=== PATIENT | female | born 2000 | race Caucasian/White ===

== ENCOUNTER 2024-02-24 07:08 | Outpatient (CLI) | payer BC, SELFPAY ==
--- NOTE | 2024-02-24 07:15 | CRLHL7_ITS ---
For Patients: As a result of the Century Cures Act, medical imaging exams and procedure reports are released immediately into your electronic medical record. You may view this report before your referring provider. If you have questions, please contact your health care provider. INDICATION: Evaluate anatomy. COMPARISON: none TECHNIQUE: Real time yao scale imaging of the fetus was performed as well as color Doppler analysis of the umbilical vessels. FINDINGS: Sonographic imaging demonstrates a single living intrauterine gestation. Fetus demonstrates a regular cardiac rate of 138 beats per minute. Fetus has a vertex position. The placenta lies posteriorly without evidence of placenta previa. As below placenta located 4.6 cm from the internal cervical os. Amniotic fluid volume appears normal. Single deepest vertical pocket: 6.7 cm. The cervix is closed and measures 3.8 cm in length. The composite ultrasound gestational age is calculated at 20 weeks 6 days with an estimated sonographic due date of 07/07/2024. The estimated weight is 399 grams which lies at the 66th %. The following biometric measurements were obtained: Biparietal diameter: 4.7 cm/20 weeks 1 day 26th% Head circumference: 17.7 cm/20 weeks 2 days 20th% Abdominal circumference: 16.7 cm/21 weeks 5 days 75th% Femur length: 3.4 cm/20 weeks 5 days 41st% The HC/AC ratio measures: 1.07 range (1.06-1.25) On anatomic survey, there is a normal appearance of the cerebral ventricles, cavum septi pellucidi, cisterna magna and cerebellum. The nose, lips, and facial profile appear normal. The cervical, thoracic and lumbar spine are well visualized and appear normal. There is a normal four-chamber heart view and the left and right ventricular outflow tracts appear normal. The diaphragm and stomach appear normal. The kidneys and bladder also appear normal. There is a normal three-vessel cord and cord insertion site. The four extremities appear normal. IMPRESSION: Normal OB ultrasound exam with concordance of clinical and sonographic dating. No intrinsic abnormalities noted on anatomic survey. Dictated by Jethro Callejas MD @ 02/24/2024 2:21:36 PM (Electronically Signed)
== END 2024-02-24 07:09 | disposition home or self-care (01) ==
LOC: US 07:08
PROVIDERS: PCP Internal Medicine; Visit Provider Advanced Practice Midwife
DX: Z34.92 Encounter for supervision of normal pregnancy, unspecified, second trimester (principal); Z3A.20 20 weeks gestation of pregnancy
CPT/HCPCS: 76805

== ENCOUNTER 2024-04-20 08:35 | Outpatient (CLI) | payer BC, MEDICAID, SELFPAY | END 2024-04-20 08:36 | disposition home or self-care (01) | LOC: NFLDREF 04-23 05:52 | PROVIDERS: PCP Internal Medicine; Referring Provider Internal Medicine; Visit Provider Advanced Practice Midwife | DX: Z34.93 Encounter for supervision of normal pregnancy, unspecified, third trimester (principal); Z3A.28 28 weeks gestation of pregnancy | CPT/HCPCS: 86592 ==

== ENCOUNTER 2024-06-01 14:22 | Outpatient (CLI) | payer BC, MEDICAID, SELFPAY | END 2024-06-01 14:23 | disposition home or self-care (01) | LOC: NFLDREF 06-07 07:10 | PROVIDERS: PCP Internal Medicine; Referring Provider Internal Medicine; Visit Provider Midwife | DX: Z34.83 Encounter for supervision of other normal pregnancy, third trimester (principal) | CPT/HCPCS: 82728 ==

== ENCOUNTER 2024-06-07 11:14 | Outpatient (RCR) | payer BC, SELFPAY ==
--- NOTE | 2024-06-06 11:18 | URNOTE ---
?Request received for authorization for [employer] ([employer] ([id number]). Prior authorization is not required per [facility] Ref#[id number].
[2024-06-07 11:26] VITALS: BP 120/72; PULSE 85; RESP 14; TEMP 36.1; O2SAT 99
[2024-06-07] MEDS: IRON DEXTRAN COMPLEX 25 MG in 0.9 % SODIUM CHLORIDE 100 ml 100 ML 402 MG IVPB (12:04)
[2024-06-07] MEDS: IRON DEXTRAN COMPLEX 975 MG in 0.9 % SODIUM CHLORIDE 250 ml 250 ML 270 MG IVPB (13:33)
[2024-06-07 14:45] VITALS: BP 122/69; PULSE 102; RESP 18; O2SAT 99
== END 2024-12-04 23:59 | disposition home or self-care (01) ==
LOC: CCIC 11:14
PROVIDERS: PCP Internal Medicine; Referring Provider Internal Medicine; Visit Provider Clinical Nurse Specialist
DX: O99.013 Anemia complicating pregnancy, third trimester (principal); D50.9 Iron deficiency anemia, unspecified
CPT/HCPCS: 96365; 96376; J1750; J7050

== ENCOUNTER 2024-06-08 15:27 | Outpatient (CLI) | payer BC, SELFPAY ==
[2024-06-09 14:29] LABS: Strep B DNA Probe Negative (Negative)
[2024-06-09 14:32] LABS: Strep B Susceptibility Needed? No
== END 2024-06-08 15:28 | disposition home or self-care (01) ==
LOC: NFLDREF 15:27
PROVIDERS: PCP Internal Medicine; Visit Provider Advanced Practice Midwife
DX: Z34.93 Encounter for supervision of normal pregnancy, unspecified, third trimester (principal); Z3A.35 35 weeks gestation of pregnancy
CPT/HCPCS: 87081; 87653

== ENCOUNTER 2024-07-13 17:37 | Outpatient (CLI) | payer BC, SELFPAY ==
--- NOTE | 2024-07-13 17:30 | CRLHL7_ITS ---
For Patients: As a result of the Century Cures Act, medical imaging exams and procedure reports are released immediately into your electronic medical record. You may view this report before your referring provider. If you have questions, please contact your health care provider. INDICATION: post term COMPARISON: 02/24/2024 TECHNIQUE: Real time yao scale imaging of the fetus was performed. Without non-stress testing. FINDINGS: Sonographic imaging demonstrates a single living intrauterine gestation. Fetus demonstrates a regular cardiac rate of 154 beats per minute. Fetus has a vertex position. The amniotic fluid volume appears normal and there is a single deepest pocket measurement of 7.9 cm. The fetus was active and demonstrated normal breathing movements. There was normal flexion and extension of the trunk and extremities. IMPRESSION: Normal biophysical profile score of 8 out of 8. Dictated by Jethro Callejas MD @ 07/14/2024 10:20:20 AM (Electronically Signed)
== END 2024-07-13 17:38 | disposition home or self-care (01) ==
LOC: US 17:38
PROVIDERS: PCP Internal Medicine; Visit Provider Advanced Practice Midwife
DX: O48.0 Post-term pregnancy (principal)
CPT/HCPCS: 76819

== ENCOUNTER 2024-07-14 21:31 | Inpatient (IN) | payer BC, SELFPAY ==
--- NOTE | 2024-07-14 21:40 | W.PM.LDBA ---
Subjective History of Present Illness Time Seen by Provider: 21:40 Date Seen: 07/14/24 Narrative: Eva is being admitted to Labor and Delivery for active labor at term. She is a 23 year old at 40.6 weeks gestation. Her full history and physical was dictated by Vishal Calvo CNM on 06/15/24. Please see this for details. She has been neva mildly most of the day but they became more regular and more uncomfortable around 1800 with reporting them every 3-4 minutes. On presentation she was 6cm/80%/0 per RN exam. She has had some bloody show but denies leaking fluid. She is appreciating good movement. Specific Issues/Plans Jimi- It is another boy! Tx at 18wks from [place] H&P 06/15/24 by Vishal Calvo CNM # Hx PPH from lacerations requiring 2 units PRBC. Has trauma from her previous delivery. # Anemia, Hgb 10.4; 34wk: 10.1 Recommended iron supplement, taking gummy IV iron 06/07 # Prepregnancy BMI >35. OB Labs: ? Blood type: A+, antibody screen negative. ? Hgb: 12.2 ? Platelets: 352 ? Rubella: Immune ? Varicella: not tested RPR: non-reactive ? HBsAg: non-reactive ? Hep C: negative HIV: negative ? UC: negative GC/Chlamydia: negative/negative ? Pap (12/08/23): negative ? Genetic screening: negative, NIPT IMAGING: ? 1st trimester: Single, living intrauterine with crown-rump length of 2.38 cm corresponding to 9 weeks, 1 day gestational age. Yolk sac is visualized and appears normal. Gestational sac is fundal. Normal cardiac activity. TDAP: 05/04/2024 Flu: declined RSV: declined OB - Problem Based A/P Additional Plan (1) Pain during labor: Status: Acute (2) Hx of hemorrhage, currently : Problem details: bleeding from lacerations, needed 2 units PRBC Status: Acute Plan ASSESSMENT:? at 40.6 weeks gestation? GBS negative? complicated by: obesity (BMI >35 at NOB), anemia on iron Labor type: spontaneous Blood type:?A+ ?? PLAN:? 1. Expectant management at this time. Anticipate . 2. Desires water . Consent signed. Hep C negative.? 3. Candidate for analgesia of choice. Planning unmedicated .? 4. Intermittent monitoring after reactive tracing unless patient condition changes. 5. Encouraged IV placement given her history of PPH but declines. PPH was related to laceration and not uterine. Delivery/Labor/Induction Plan Plan: expectant management OB Result Labs Blood Type: A (+) positive Rubella: immune RPR/VDLR: nonreactive GBS Status: negative HBsAG: negative OB Exam Physical Exam Narrative: General: alert, oriented x3, no acute distress Mood: appropriate Lungs: CTA. Respirations - breathing unlabored Heart: Regular rate and rhythm Abdomen: soft, nontender, gravid uterus Legs: nontender, edema none Skin: warm, dry, no rashes Neurologic: Intact. Detailed Labor and Delivery Exam Patient Gravid: Yes Dilation (cm): 6 (per RN exam) Effacement (%): 80 Contraction Frequency: 2-4 min Tachysystole: No Contraction intensity: Strong/Firm Fetus (Single) Station: 0 Amniotic Membrane Status: intact Heart Rate Baseline: 120 Monitor Accelerations: Present Monitor Decelerations: None [facility] Variability: Moderate (6-25) (with periods of marked)
[2024-07-14 22:07] VITALS: BP 144/75; PULSE 99; TEMP 36.4
[2024-07-14 23:06] LABS: Basophils Absolute Auto 0.01 K/uL (0.00-0.30); Basophils Percent Auto 0.1 % (0.0-3.0); Eosinophils Absolute Auto 0.02 K/uL (0.00-0.50); Eosinophils Percent Auto 0.2 % (0.0-7.0); Hematocrit 40.9 % (33.0-51.0); Hemoglobin* 13.2 gm/dL (12.0-16.0); Immature Granulocytes Abs Auto 0.07 K/uL (0.00-0.30); Immature Granulocytes Pct Auto 0.8 %; Lymphocytes Percent Auto 14.7 % (20-44); Mean Corpuscular HGB Conc 32 gm/dL (32-36); Mean Corpuscular Hemoglobin 26 pg (26-34); Mean Corpuscular Volume 82 fL (80-100); Monocytes Percent Auto 8.6 % (0.0-11.0); Neutrophils Percent Auto 75.6 % (42.0-72.0); Platelet Count* 194 K/uL (140-440); RDW Coefficient of Variation % 23.3 % (11.5-15.5)
[2024-07-14 23:08] LABS: Slide Review Reflex No
[2024-07-14 23:30] VITALS: BP 133/66; PULSE 91; TEMP 37.1
[2024-07-14 23:44] VITALS: BMI 39.5
[2024-07-15] VITALS (13 sets, daily range): BP systolic 104–129; BP diastolic 56–77; PULSE 82–110; RESP 16–18; TEMP 36.7–36.8; O2SAT 97–100
[2024-07-15] MEDS: OXYTOCIN 10 UNIT/ML INJ IM (02:08)
[2024-07-15] MEDS: LIDOCAINE 1 % PF 30 ML INJECTION (02:15)
[2024-07-15] MEDS: lidocaine HCL 2 % JELLY (TOP) STERILE 6 ML TOPICAL (02:18)
--- NOTE | 2024-07-15 02:53 | W.PM.OBVAGDE ---
OB Procedure Vag Delivery Mother Details Mother Details: The patient is a 23 year-old, 2, Para 1, admitted on 07/14/24 at 41.0 Days gestation. : 2 Para: 2 Weeks Gestation: 41.0 Admission Date: 07/14/24 Additional Details Amniotic Membrane Status: AROM Amniotic Membrane Rupture Date: 07/15/24 Amniotic Membrane Rupture Time: 01:11 Amniotic Membrane Fluid Description: Clear Analgesia/Anesthesia Type: None Waterbirth: No (labored in tub but got out before delivery) [employer]: Yes ([facility] only) Intrapartal Events: None Delivery augmentation: rupture of membranes Labor Onset: 18:00 Complete: 01:50 Pushin:50 Heart: heart tones during second stage were not dopplered due to rapid second stage. Prior to second stage 130-140 with increases hear and no decreases were heard. Delivery Details Delivery Date: 07/15/24 Delivery Time: 01:55 Route of delivery: Gender: Male Infant Viability: Alive; Heart Rate Present Position at Delivery: OA Delivery Details: Patient was admitted for spontaneous labor and progressed with AROM augmentation. AROM noted at 0111 with clear fluid. Patient was complete at 0150 and actively pushing at 0150. She did have some spontaneous pushing with some contractions before complete. Encouraged her to breath through those urges as she could. She labored in the tub for a long time with intermittent pressure and slight urge to push. Encouraged her to get out to urinate and change positions. Assisted to the toilet where she began feeling the urge to push more often. She was found to have an anterior cervix remaining and was encouraged to breath through the urge if possible. She was offered to get back in the tub vs another position and she decided to get in hands and knees on the bed. She then felt a very strong urge to push and was found to be complete. of a viable male at 0155 in in hands and knees. Vertex delivered OA. No nuchal cord or shoulder but the cord was loosely draped over the shoulders at delivery. Body delivered easily and without incident. passed between mothers legs on the bed. No respiratory effort was made so the cord was clamped and cut and he was brought to the warmer for CPAP. APGARS were 3 at one minute, 5 at five minutes, and 8 at 10 minutes respectively. Mouth was bulb suctioned as well as deep suctioned on the warmer with a return of a large amount of clear fluid. Intact placenta with a 3 vessel cord delivered spontaneously at 0204. Fundus firm. 1st identified and repaired in typical fashion to assist with appropriate approximation of the tissues for healing. QBL 600 cc. Mother and baby stable; mother plans to breastfeed. weight 9lb 0oz.? 1 Minute Interval Total Score: 3 5 Minute Interval Total Score: 5 10 Minute Interval Total Score: 8 Additional Details Shoulder Dystocia: No Placenta Delivery Time: 01:55 Placental Delivery Description: Spontaneous Delivery repair: Vicryl Procedure Done: Global Blood Loss: 600 Laceration: Perineal - 1st Degree Episiotomy Description: None Blood Loss Measurement Type: QBL Bakri Used: No Sponge/Need Count Correct: Yes Cord Vessel Description: 3 Vessels, Around Body and Delivered through Event Summary Status: Mother and infant were stable after delivery. Disposition: floor
[2024-07-15] MEDS: ACETAMINOPHEN 500 MG TABLET 1000 MG PO ×2 (02:59→12:22)
[2024-07-15] MEDS: DOCUSATE SODIUM 100 MG CAPSULE PO (09:26)
[2024-07-15] MEDS: IBUPROFEN 600 MG TABLET PO (18:19)
[2024-07-15] MEDS: LANOLIN CREAM 1 APPLIC TOPICAL (22:16)
[2024-07-16 02:05] VITALS: BP 113/77; PULSE 100; RESP 16; TEMP 36.8; O2SAT 98
[2024-07-16 07:08] LABS: Hemoglobin* 10.3 gm/dL (12.0-16.0)
--- NOTE | 2024-07-16 08:54 | PM.OBDSVD1 ---
DS: Providers Provider Date Seen: 07/16/24 Date of admission: 07/14/24 21:31 Primary care physician: Mandy Mejias Admitting Clinician: Maria Fernanda Calvo CNM Attending Physician on discharge: Rohini Singh CNM DS: Diagnosis Discharge Diagnosis (1) care and examination immediately after delivery: Status: Acute (2) Lactating mother: Status: Acute Exam Narrative: Exam Narrative: GENERAL APPEARANCE:? normal affect, alert, no distress MOOD:? appropriate CHEST:? clear to auscultation HEART:? regular rate and rhythm ABDOMEN:? soft, non-tender the uterine fundus is 1 below Umbilicus, Midline and is appropriate for the stage of recovery. PERINEUM:? mild edema of the perineum, there is a Perineal Laceration,?1st degree, that is healing well. EXTREMITIES:? normal and no edema Const: Vital Signs, click to edit/add: Vital Signs - 24 hr 07/15/24 12:16 07/15/24 16:12 07/15/24 21:40 Temperature 98.2 F 98.1 F Pulse Rate [Pulse Oximeter] 98 84 100 Respiratory Rate 16 18 18 Blood Pressure [Ri ght Arm] 106/70 104/66 115/77 Pulse Oximetry 97 98 97 Oxygen Delivery Me thod Room Air Room Air Room Air 07/16/24 02:05 Temperature 98.2 F Pulse Rate [Pulse Oximeter] 100 Respiratory Rate 16 Blood Pressure [Ri ght Arm] 113/77 Pulse Oximetry 98 Oxygen Delivery Me thod Room Air Documenting provider has reviewed patient's vital signs: yes OB - DS: Summary Hospital Course Hospital Course: Eva is a 23 y.o. G 2 P 2 who was admitted to L & D for spontaneous onset of labor. ?She had a NVD that was uncomplicated. The patient feels well. ?The pain is well controlled with current medications. ?She has no new complaints. ?She is breast feeding and reports things are going well. the patient has done well.? Vitals have been stable.? She has remained afebrile.? Has a good appetite, is tolerating a general diet. ?She is voiding without difficulty.? She is passing gas and has not had a bowel movement.? She is ambulating and denies any dizziness.? Has small amount of rubra lochia. She is planning condoms for prevention. Problems: anemia plan: Discharge home with baby. Follow up in 2 weeks and 6 weeks. , may see if needed Hgb 10.3. Iron supplement ordered orally every other day Peripartum Data delivery method: Vaginal Laceration description: Perineal - 1st Degree complications: none Infant Gender: Male Discharge Plan: Home Status at Discharge Functional status at discharge: independent ambulation Overall status at discharge: patient is progressing back to baseline Time Spent with Patient Time attestation: Total time spent providing and/or coordinating discharge services: Time spent: Less than 30 minutes Discharge Plan Discharge Disposition: Home, Self-Care Date of Admission: 07/14/24 21:31 Attending Provider on Discharge: Rohini Singh Primary Care Provider: Mandy Mejias Condition: Stable Anticipated Discharge Date/Time: 07/16/24 Discharge Medications: New acetaminophen 500 mg Tablet 1,000 mg PO Q6H PRN (Reason: pain/fever) Qty: 0 0RF docusate sodium 100 mg Capsule 100 mg PO DAILY Qty: 90 0RF ibuprofen 600 mg Tablet 600 mg PO Q6H PRNQty: 60 0RF Continued PNV 119-iron fum-folic acid 29 mg iron- 1 mg tablet 1 tab PO DAILY ferrous sulfate [Feosol] 325 mg (65 mg iron) tablet 325 mg PO QDAY Discharge Orders: Discharge Order (Routine); Ordered 07/16/24 Ordered By: Rohini Singh Patient Education: OB Over the Counter Medication Information, OB Vaginal/Breast Feeding Additional Instructions: Discharge instructions were reviewed with the patient including signs and symptoms of infection and home going medications Nothing vaginally for 6 weeks: no tampons or intercourse Off Work or School for 6 weeks 2-week visit: discuss infant feeding concerns, review control options and screen for anxiety/depression. 6-week visit for an annual exam. consultation services are available to all mothers and babies for the first year after delivery.? To make an appointment, please call [phone]. Activity Level: Activity as Tolerated Discharge Diet: Regular Follow Up Appointments: [facility] [Provider Group] Forms: [employer] Info Instructions
[2024-07-16] MEDS: DOCUSATE SODIUM 100 MG CAPSULE PO (09:47)
[2024-07-16 09:48] VITALS: BP 120/77; PULSE 92; RESP 18; TEMP 36.6; O2SAT 98
[2024-07-17 20:23] LABS: Rapid Plasma Reagin (RPR) Non Reactive (Non Reactive)
== END 2024-07-16 13:25 | disposition home or self-care (01) | DRG 560 ==
LOC: OB OUT 21:33 → OB 21:33
PROVIDERS: Admitting Provider Advanced Practice Midwife; PCP Internal Medicine; Visit Provider Advanced Practice Midwife
DX: O70.0 First degree perineal laceration during delivery (principal); O99.02 Anemia complicating childbirth; D50.9 Iron deficiency anemia, unspecified; O99.214 Obesity complicating childbirth; Z3A.40 40 weeks gestation of pregnancy; Z37.0 Single live birth
CPT/HCPCS: 36415; 85018; 85025; 86592; 86850; 86900; 86901; A9270; J2003; J2590

== ENCOUNTER 2025-07-10 14:04 | Outpatient (CLI) | payer BC, SELFPAY ==
--- NOTE | 2025-07-10 14:00 | CRLHL7_ITS ---
For Patients: As a result of the Century Cures Act, medical imaging exams and procedure reports are released immediately into your electronic medical record. You may view this report before your referring provider. If you have questions, please contact your health care provider. OB ULTRASOUND FIRST TRIMESTER, TRANSVAGINAL INDICATION: Dating and viability. TECHNIQUE: Real time yao scale imaging of the fetus was performed. Transvaginal imaging performed. LMP: 05/07/2025. JOSE ENRIQUE by LMP: 02/11/2026. GA: 9 w, 1 d. Previous US: No. CRL: 2.6 cm. 9 w 2 d. JOSE ENRIQUE: 02/09/2026. FHR: 176 BPM. Gestational sac: 3.9 cm. Appears within normal limits. Yolk sac: Appears within normal limits. Right ovary: Within normal limits. 2.9 x 1.9 x 2.1 cm. CL. Left ovary: Within normal limits. 2.7 x 1.5 x 1.6 cm. IMPRESSION: 1. Single living intrauterine measures 9 weeks 3 days with sonographic due date 02/09/2026. 2. Subchorionic hemorrhage on the left measures 2.0 x 1.7 x 1.1 cm. 3. Subchorionic hemorrhage on the right measures 2.8 x 2.0 x 1.1 cm. 4. There is concern for nuchal translucency thickening along with a possible intracranial cyst. MFM consult recommended. Jethro Callejas M.D. Diagnostic Radiologist [email or web address] SP/Dictated by: Jethro Callejas MD @ 07/10/2025 6:42:00 PM (Electronically Signed)
== END 2025-07-10 14:05 | disposition home or self-care (01) ==
LOC: US 14:05
PROVIDERS: PCP Internal Medicine; Visit Provider Advanced Practice Midwife
DX: O20.9 Hemorrhage in early pregnancy, unspecified (principal); Z3A.09 9 weeks gestation of pregnancy
CPT/HCPCS: 76817

== ENCOUNTER 2025-07-10 15:38 | Outpatient (CLI) | payer BC, SELFPAY | END 2025-07-10 15:39 | disposition home or self-care (01) | PROVIDERS: PCP Internal Medicine; Visit Provider Advanced Practice Midwife | DX: Z34.81 Encounter for supervision of other normal pregnancy, first trimester (principal); Z3A.09 9 weeks gestation of pregnancy | CPT/HCPCS: 83020; 83021; 85660; 86592; 86703; 86704; 86706; 86762; 86787; 86803; 86850; 87086; 87340 ==

== ENCOUNTER 2025-07-24 12:55 | Outpatient (CLI) | payer BC, SELFPAY ==
--- NOTE | 2025-07-24 13:00 | CRLHL7_ITS ---
For Patients: As a result of the Century Cures Act, medical imaging exams and procedure reports are released immediately into your electronic medical record. You may view this report before your referring provider. If you have questions, please contact your health care provider. OBSTETRICAL ULTRASOUND TRANSABDOMINAL CLINICAL INDICATION: Follow-up possible thickened NT, cyst in brain. LMP: 05/07/2025 JOSE ENRIQUE by LMP: 02/11/2026 Gestational age: 11 weeks 1 day Previous ultrasound: Yes, 07/10/2025 JOSE ENRIQUE by ultrasound: 02/09/2026 Gestational age: 9 weeks 2 days TECHNIQUE: Real-time yao-scale imaging of the fetus was performed transabdominal. FINDINGS: CRL: 4.9 cm, 11 weeks 5 days; JOSE ENRIQUE 02/07/2026 heart rate: 169 BPM Gestational sac: 4.7 cm, appears within normal limits Yolk sac: Not visualized Right ovary: Within normal limits; 3.9 x 1.8 x 2.4 cm Left ovary: Within normal limits; 3.7 x 1.6 x 1.9 cm IMPRESSION: 1. Sonographic gestational age is 11 weeks 5 days and sonographic due date is 02/07/2026. 2. Subchorionic hemorrhage measures 2.1 x 1.6 x 3.3 cm. 3. Faint synechiae may be developing within the amniotic fluid. JETHRO FISHER M.D. Diagnostic Radiologist [email or web address] Transcribed: 4:[address]/Dictated by: Jethro Fisher MD @ 07/24/2025 3:28:00 PM (Electronically Signed)
== END 2025-07-24 12:56 | disposition home or self-care (01) ==
LOC: US 12:55
PROVIDERS: PCP Internal Medicine; Visit Provider Advanced Practice Midwife
DX: O28.3 Abnormal ultrasonic finding on antenatal screening of mother (principal); O20.9 Hemorrhage in early pregnancy, unspecified; Z3A.11 11 weeks gestation of pregnancy
CPT/HCPCS: 76816

== ENCOUNTER 2025-07-24 13:47 | Outpatient (CLI) | payer BC, SELFPAY | END 2025-07-24 13:48 | disposition home or self-care (01) | PROVIDERS: PCP Internal Medicine; Visit Provider Advanced Practice Midwife | DX: O99.211 Obesity complicating pregnancy, first trimester (principal); Z3A.11 11 weeks gestation of pregnancy | CPT/HCPCS: 87491; 87591 ==